=== PATIENT | male | born 1985 | race Caucasian/White ===

== ENCOUNTER 2017-08-19 21:02 | Emergency (ER) | payer OTHER ==
[~2017-08-19] VITALS: Ht 177.8 cm; Wt 72.7 kg
[2017-08-19] MEDS ORDERED: PERCOCET 5/31 TABLET PO (22:42)
[2017-08-19] MEDS ORDERED: VALIUM5 MG PO (22:42)
[2017-08-19 23:05] VITALS: BP 161/90
== END 2017-08-19 23:06 | disposition home or self-care (01) ==
LOC: EME 21:02
DX: S13.9XXA Sprain of joints and ligaments of unspecified parts of neck, initial encounter (principal); R20.2 Paresthesia of skin; W03.XXXA Other fall on same level due to collision with another person, initial encounter; Y93.61 Activity, american tackle football; F17.200 Nicotine dependence, unspecified, uncomplicated; K50.90 Crohn's disease, unspecified, without complications
CPT/HCPCS: 99281; 99283

== ENCOUNTER 2018-01-30 17:12 | Emergency (ER) | payer OTHER ==
[~2018-01-30] VITALS: Ht 177.8 cm; Wt 78.8 kg
[~2018-01-30 17:12] MED LIST: PERCOCET 5/31 TABLET PO; VALIUM5 MG PO
[2018-01-30] MEDS ORDERED: PREDNISONE10 MG PO (18:55)
[2018-01-30 19:24] VITALS: BP 138/85
== END 2018-01-30 19:24 | disposition home or self-care (01) ==
LOC: EME 17:12
DX: M54.41 Lumbago with sciatica, right side (principal); K50.90 Crohn's disease, unspecified, without complications; F17.200 Nicotine dependence, unspecified, uncomplicated
CPT/HCPCS: 99281; 99284; J7512